=== PATIENT | female | born 1975 | race Caucasian/White ===

== ENCOUNTER 2024-10-12 00:01 | Emergency (ER) | payer SELFPAY ==
[2024-10-12] VITALS (7 sets, daily range): BP systolic 121–143; BP diastolic 82–99; BMI 18.2
[2024-10-12 00:34] LABS: % Basophils 0.5 % (0-2); % Eosinophils 2.6 % (0-6); % Immature Granulocytes 0.3 % (0-0.5); % Lymphocytes 27.1 % (20.5-51.1); % Neutrophils 59.5 % (42.2-75.2); Absolute Eosinophils 0.2 10^3/uL (0-0.7); Absolute Lymphocytes 1.6 10^3/uL (1.2-3.4); Absolute Monocytes 0.6 10^3/uL (0.1-0.6); Absolute Neutrophils 3.5 10^3/uL (1.4-6.5); Hematocrit 39.3 % (37.0-47.0); Hemoglobin 13.9 g/dL (12.0-16.0); Mean Corp Hgb Conc. 35.4 g/dL (33.0-37.0); Mean Corpuscular Hgb 34.3 pg (27.0-31.0); Mean Platelet Volume 8.8 fL (7.4-10.4); Nucleated Red Blood Cells % 0 %; Platelet Count 224 10^3/uL (130-400); Red Blood Cell Count 4.05 10^6/uL (4.20-5.40); Red Cell Dist. Width 11.9 % (11.5-14.5); White Blood Cell Count 5.8 10^3/uL (4.8-10.8)
[2024-10-12 00:56] LABS: ALT (SGPT) 24 U/L (0-35); AST (SGOT) 27 U/L (14-36); Albumin 4.4 g/dl (3.5-5.0); Alkaline Phosphatase 53 U/L (38-126); Blood Urea Nitrogen 15 mg/dl (7-17); Calcium 9.1 mg/dl (8.4-10.2); Carbon Dioxide 23 mmol/L (22-30); Chloride 106 mmol/L (98-107); Glucose 93 mg/dl (70-99); Sodium 139 mmol/L (135-145); Total Bilirubin 0.8 mg/dl (0.2-1.3); Total Protein 6.9 g/dl (6.3-8.2); eGFR > 60.00
[2024-10-12 01:05] LABS: Troponin I < 0.012 ng/ml
--- NOTE | 2024-10-12 02:39 | ED.GENMED ---
History of Present Illness
General
Chief Complaint: Breathing Problem
Source: patient and ambulance crew
Exam Limitations: none
Time Seen by Provider: 10/12/24 01:52
Nursing documentation reviewed up to this point in time: agreed with
History of Present Illness
History of Present Illness:
Pleasant 49-year-old female presents the emergency department with left sided back pain that came on suddenly. She states that the pain was intense and she collapsed onto the floor. She called 911 and EMS stated that she was able to ambulate with
no difficulty. Patient stated that she was checking her blood pressure at the time and was elevated. Patient does have chronic pain from a horse riding accident which left her with several broken ribs and lumbar fractures. She states that her
symptoms had resolved. She does report that she does get panic attacks and though this felt similar to not identical to previous panic attacks.
Past History
Past History
ED Past Medical History: None and Other (anxiety, depression, L-spine fracture)
ED Past Surgical History: and Other (breast implants, dental surgeries)
Social History
Tobacco: Smoker (half pack a day)
Personal:
Living: with family
Employment: Employed
Family History
Family History: Other ([place])
Phy Exam
Physical Exam
Physical Exam:
Physical Exam
Vital signs and allergy list reviewed and agreed with.
GENERAL: Alert , in minimal apparent distress
EYE: pupils equal, EOMI, anicteric
NECK: Supple, no significant adenopathy. No masses. Trachea midline
ENT: Oropharynx is clear, mmm.
CARDIAC: Regular rate and rhythm . No M/R/G
LUNGS: Clear breath sounds bilaterally, no acute respiratory distress, no wheezes/rales/rhonchi
ABDOMEN: Soft, without focal tenderness, no r/g, no cvat. Normal BSx4q
NEUROLOGICAL: Alert and oriented, no focal neuro deficits
SKIN: Warm and dry, skin intact.
MUSCULOSKELETAL: No edema, well perfused. Moves all 4 extremities
PSYCH: Normal and appropriate interaction.
Scores
Heart Failure Risk
Heart Failure Risk Score: Not Applicable
PE Wells Score
Symptoms of DVT: No
No alternative diagnosis better explains the illness: No
Tachycardia with pulse > 100: No
Immobilization (>=3 days) or surgery within previous 4 weeks: No
Prior history of DVT or pulmonary embolism: No
Presence of hemoptysis: No
Presence of malignancy: No
Pulmonary Embolism Risk Score: 0
Probability of PE: Pt is low risk
Course
Orders/Labs/Results
Orders:
Orders
10/12/24 00:08
Electrocardiogram (*1) Urgent
Reason for Study: Chest Pain
Electrocardiogram (*1) Urgent
Reason for Study: Chest Pain
10/12/24 00:09
EKG- Treatment ONCE
10/12/24 00:24
Complete Blood Count/With Diff Urgent
Comprehensive Metabolic Panel Urgent
Troponin I Urgent
10/12/24 02:35
D-Dimer Urgent
10/12/24 02:41
Troponin I Urgent
10/12/24 03:58
CR Chest - 2 Views Urgent
Comment:
Reason For Exam: dyspnea
Abnormal Lab Results
10/12/24
00:24
RBC 4.05 L 10^6/uL
(4.20-5.40)
MCH 34.3 H pg
(27.0-31.0)
Monocytes % 10.0 H %
(1.7-9.3)
10/12/24 00:24
10/12/24 00:24
Vital Signs
Initial and Last Documented VS:
Initial Vital Signs
Temp Pulse Resp BP Pulse Ox
98.1 F 76 16 143/99 96
10/12/24 00:03 10/12/24 00:03 10/12/24 00:03 10/12/24 00:03 10/12/24 00:03
Last Documented Vital Signs
Temp Pulse Resp BP Pulse Ox
98.1 F 72 23 125/85 96
10/12/24 00:03 10/12/24 03:30 10/12/24 03:30 10/12/24 03:00 10/12/24 03:30
*Critical Care Note
Total Time (30-74mins, 75-104mins- exclusive of procedures): Not Applicable
Update Note
Update Note:
Labs are normal. X-ray is clear. Patient is asymptomatic
Differential is anxiety, musculoskeletal, bronchitis, asthma.
ED Attending Note
-
Portions of this chart may have been created with voice recognition software.� Occasional wrong word or��sound alike� substitutions may have occurred due to the inherent limitations of voice recognition software.
Discharge Plan
Departure
Patient Disposition: Home (Routine Discharge)
Date of Disposition: 10/12/24
Time of Disposition: 04:27
Patient with high blood pressure during this ER visit?: Yes
Condition: Good
Discharge Problem:
Musculoskeletal pain
Instructions: BLOOD PRESSURE, Musculoskeletal Pain
Prescriptions:
No Action
multivitamin [Multi-Day] 1 EACH tablet
1 ea PO DAILY
cyclobenzaprine 10 MG tablet
10 mg PO TIDPRN PRN (Reason: pain)
lorazepam 0.5 MG tablet
0.5 mg PO Q4HPRN PRN (Reason: anxiety)
oxycodone 5 MG tablet
5 mg PO Q6 PRN (Reason: pain)
tramadol 50 MG tablet
50 mg PO Q8HPRN PRN (Reason: pain) Qty: 20 0RF
Referrals:
[facility] [Provider Group]
[facility] [Outside]
[facility] [Outside]
UNKNOWN - PT DOES,NOT KNOW [Family Provider] -
Activity Restrictions/Additional Instructions:
It was a pleasure meeting you and taking part in your care. We hope for your continued healing and wellness.
Please read discharge instructions in their entirety. However, they are for general education and may not describe your exact diagnosis at discharge. Information on your ER visit and medical conditions were discussed with you along with appropriate
follow up information...
If indicated, please take your medications as instructed and indicated on discharge paperwork.
Please schedule a follow up appointment as directed. Call to schedule an appointment
Please return to the emergency department with ANY change in, persisting, or worsening of symptoms. If any of your symptoms do not improve, or persist, or become more severe within 6-12 hours, please return to the emergency department for further
care.
Please return to the emergency department if you develop a headache, neck pain/stiffness, fever greater than 100.4F, chest pain, shortness of breath, persistent nausea, vomiting, slurred speech, difficulty walking, numbness/tingling, weakness, signs
of infection or any other symptoms that are worrisome to you.
If you have any questions or concerns please do not hesitate to call the Hospital at or E-mail me directly at [email or web address]
Interventions
Interventions:
*Risk Screen - Suicide Last Done: 10/12/24 00:03
*General Assessment Last Done: 10/12/24 01:31
*Neglect/Abuse Screening Last Done: 10/12/24 01:31
ED- Fall Risk Assessment Last Done: 10/12/24 01:31
*ED COVID-19 Vaccine History Last Done: 10/12/24 01:31
ED- Cardiac Assessment Last Done: 10/12/24 01:31
ED- Pulmonary Assessment Last Done: 10/12/24 01:31
Discharge Date and Time
Print Language: WALLISIAN
[2024-10-12 03:08] LABS: D-Dimer 0.31 ug/mlFEU (0.00-0.50)
[2024-10-12 03:22] LABS: Troponin I < 0.012 ng/ml
== END 2024-10-12 05:01 | disposition home or self-care (01) ==
LOC: EMR 00:01
PROVIDERS: EMERGENCY PHYSICIAN Student in an Organized Health Care Education/Training Program
DX: M79.18 Myalgia, other site (principal); G89.29 Other chronic pain; F17.210 Nicotine dependence, cigarettes, uncomplicated; Z87.81 Personal history of (healed) traumatic fracture
CPT/HCPCS: 99285; 71046; 80053; 84484; 85025; 85379; 93005